=== PATIENT | female | born 1950 | race Caucasian/White ===

== ENCOUNTER 2016-09-15 06:52 | Emergency (ER) | payer BC ==
[2016-09-15] MEDS ORDERED: Phenylephrine 1% NASAL* 15 ML BOT LEFT NARE ONE (08:16)
[2016-09-15] MEDS ORDERED: Lidocaine 4% TOPICAL* 50 ML TOP.SOLN TOPICAL ONE ×2 (08:18→08:23)
[2016-09-15 09:28] VITALS: BP 149/70
--- NOTE | 2016-09-15 16:24 | ED ---
Chris Jorge Adam, scribed for Kanu Gallardo MD on 09/15/16 at 0821 . Throat Pain/Nasal Congestion - HPI Summary HPI Summary: 66 y/o female presents to ED with epistaxis beginning at 05:30 this morning which has not subsided since. Blood flowing from the left nostril was unable to be controlled running down the back of the throat waking up the pt. Pt notes that she hit her head yesterday but there was no impact to her nose or face area. [employer] pt took one baby aspirin. Currently, blood is no longer running down the back of the throat. Pt denies any blood thinner, previous uncontrollable epistaxis, rhinorrhea, URI, drug use, nasal sprays, tobacco use, EtOH use or known allergies. She describes her home has fairly hot and dry. - History of Current Complaint Chief Complaint: EDEpistaxis Time Seen by Provider: 09/15/16 07:54 Hx Obtained From: Patient Onset/Duration: Sudden Onset, Lasting Hours, Still Present Severity: Mild Associated Signs And Symptoms: Positive: Sinus Discomfort - Epistaxis - Allergies/Home Medications Allergies/Adverse Reactions: Allergies Allergy/AdvReac Type Severity Reaction Status Date / Time No Known Allergies Allergy Verified 04/18/16 09:33 PMH/Surg Hx/FS Hx/Imm Hx Endocrine/Hematology History: Denies: Hx Diabetes Cardiovascular History: Denies: Hx Hypertension, Hx Pacemaker/ICD History: Denies: Hx Renal Disease Sensory History: Denies: Hx Hearing Aid Psychiatric History: Denies: Hx Panic Disorder - Cancer History Cancer Type, Location and Year: BREAST 2008 Hx Chemotherapy: No Hx Radiation Therapy: Yes - BREAST - Surgical History Surgery Procedure, Year, and Place: LUMPECTOMY LEFT 2008, Infectious Disease History: No Infectious Disease History: Denies: Traveled Outside the [place] in Last 30 Days - Family History Known Family History: Positive: Other - Negative FMHx of breast CA - Social History Occupation: Employed Full-time Lives: Alone Alcohol Use: None Hx Substance Use: No Substance Use Type: Reports: None Hx Tobacco Use: No Smoking Status (MU): Never Smoked Tobacco Review of Systems Negative: Fever Positive: Epistaxis. Negative: Nasal Discharge All Other Systems Reviewed And Are Negative: Yes Physical Exam - Summary Physical Exam Summary: The patient is well-nourished in no acute distress and in no acute pain. The skin is warm and dry and skin color reflects adequate perfusion. HEENT: The head is normocephalic and atraumatic. The pupils are equal and reactive. The conjunctivae are clear and without drainage. Evidence of epistaxis. Mouth reveals dry mucous membranes. Neck is supple with full range of motion and non-tender. There are no carotid bruits. There is no neck vein distension. Respiratory: Chest is non-tender. Lungs are clear to auscultation and breath sounds are symmetrical and equal. Cardiovascular: Heart is regular rate and rhythm. There is no murmur or rub auscultated. There is no peripheral edema and pulses are symmetrical and equal. Abdomen: The abdomen is soft and non-tender. There are normal bowel sounds heard in all four quadrants and there is no organomegaly palpated. Musculoskeletal: There is no back pain noted. Extremities are non-tender with full range of motion. There is good capillary refill. There is no peripheral edema or calf tenderness elicited. Neurological: Patient is alert and oriented to person, place and time. The patient has symmetrical motor strength in all four extremities. Cranial nerves are grossly intact. Deep tendon reflexes are symmetrical and equal in all four extremities. Psychiatric: The patient has an appropriate affect and does not exhibit any anxiety or depression. Triage Information Reviewed: Yes Vital Signs On Initial Exam: Initial Vitals Temp Pulse Resp BP Pulse Ox 99.1 F 93 16 176/92 98 09/15/16 06:53 09/15/16 06:53 09/15/16 06:53 09/15/16 06:53 09/15/16 06:53 Vital Signs Reviewed: Yes Procedures - Procedure Summary Procedure Summary: 08:35 - Pledget, Jovany-Synephrine 1% and viscous lidocaine 4% was instilled in both nostrils. Diagnostics - Vital Signs Vital Signs Temp Pulse Resp BP Pulse Ox 09/15/16 06:53 99.1 F 93 16 176/92 98 - Laboratory Lab Statement: Any lab studies that have been ordered have been reviewed, and results considered in the medical decision making process. Re-Evaluation - Re-Evaluation First Eval Re-Evaluation Time: 09:15 - Took pledgets out of nose and there is no active bleeding. There is no blood visualized in the posterior pharynx. Change: Improved Second Eval Re-Evaluation Time: 09:32 - No active bleeding. Triple antibiotic ointment applied in nose. EENT Course/Dx - Differential Diagnoses Differential Diagnoses: Epistaxis - Diagnoses Provider Diagnoses: Epistaxis Discharge - Discharge Plan Condition: Stable Disposition: HOME Patient Education Materials: Nosebleed (ED) Referrals: Ariel Contreras MD [Primary Care Provider] - Additional Instructions: Follow up with Dr. Contreras. Avoid coughing, sneezing, and lifting. Get a petroleum-based jelly or antibiotic ointment to put in nose 1-2 times a day. Also, use saline drops. Humidify air in bedroom. The documentation as recorded by the Chris marsh Adam accurately reflects the service I personally performed and the decisions made by me, Kanu Gallardo MD.
== END 2016-09-15 10:20 | disposition home or self-care (01) ==
LOC: ED 06:52
DX: R04.0 Epistaxis (principal); Z85.3 Personal history of malignant neoplasm of breast
CPT/HCPCS: 30901; 99282; A9270-GY

== ENCOUNTER 2022-04-10 08:03 | Inpatient (IN) ==
[2022-04-10] MEDS ORDERED: Ondansetron ODT 4 mg TAB 4 MG TAB PO PRN (11:53)
[2022-04-10] MEDS ORDERED: Morphine 2 MG/ML SYRINGE IV PRN (11:53)
[2022-04-10] MEDS ORDERED: Magnesium Hydroxide LIQ 30 ML UDC PO PRN (11:53)
[2022-04-10] MEDS ORDERED: Lactulose 30 ml UDC PO PRN (11:53)
[2022-04-10] MEDS ORDERED: Ondansetron 4 mg VIAL 2 MG/ML 2 ml VIAL IV PRN (11:53)
[2022-04-10 15:50] LABS: ABS Lymphocytes 1.1 10^3/ul (1.0-4.8); ABS Monocytes 0.8 10^3/ul (0-0.8); ABS Neutrophils 5.7 10^3/ul (1.5-7.7); Eosinophil % 0.1 %; Hematocrit 39 % (35-47); Hemoglobin 13.7 g/dL (12.0-16.0); Lymphocyte % 14.6 %; Mean Corpuscular HGB Conc 35 g/dL (31-36); Mean Corpuscular Hemoglobin 35 pg (27-31); Mean Corpuscular Volume 99 fL (80-97); Mean Platelet Volume 8.7 fL (7.4-10.4); Platelet Count 182 10^3/uL (150-450); Red Blood Count 3.95 10^6 /uL (3.70-4.87); Red Cell Distribution Width 14 % (10-15); White Blood Count 7.7 10^3/uL (3.5-10.8)
[2022-04-10 16:01] LABS: INR 1.1 (0.89-1.11)
[2022-04-10] MEDS: Lactated Ringers 1000 ml BAG 1,000 ML IV SCH (17:43)
[2022-04-10 17:48] LABS: eGFR CKD-EPI 82.4 (>60)
[2022-04-10 18:43] LABS: Activated Partial Thrombo Time 30.6 seconds (26.0-38.0)
[2022-04-10 18:50] LABS: Calcium 9.5 mg/dL (8.6-10.3); Potassium 4.4 mmol/L (3.5-5.0)
[2022-04-10] MEDS: Magnesium Hydroxide LIQ 30 ML UDC PO SCH (19:46)
[2022-04-10] MEDS: Heparin 5000 UNITS/ML 1 mL VIAL SUBCUT SCH (19:53)
[2022-04-11] MEDS: Lactated Ringers 1000 ml BAG 1,000 ML IV SCH (05:34)
[2022-04-11] MEDS: Heparin 5000 UNITS/ML 1 mL VIAL SUBCUT SCH ×2 (09:26→21:50)
[2022-04-11] MEDS: Magnesium Hydroxide LIQ 30 ML UDC PO SCH ×2 (09:27→21:48)
[2022-04-11] MEDS: Vitamin THERAPEUTIC TAB PO SCH (09:28)
[2022-04-11 14:20] LABS: Vitamin D Total 25(OH) 68.2 ng/mL (20-50)
[2022-04-12] MEDS ORDERED: oxyCODONE/Acetamin 5/325 mg TAB PO PRN (09:35)
[2022-04-12] MEDS ORDERED: fentaNYL 100 mcg/2 ml 50 MCG/ML VIAL IV PRN (09:35)
[2022-04-12] MEDS ORDERED: Naloxone 0.4 mg VIAL 0.4 mg/ml 1 ml VIAL IV PRN (09:35)
[2022-04-12] MEDS ORDERED: Ondansetron 4 mg VIAL 2 MG/ML 2 ml VIAL IV PRN (09:35)
[2022-04-12] MEDS: Vitamin THERAPEUTIC TAB PO SCH (10:11)
[2022-04-12] MEDS: Heparin 5000 UNITS/ML 1 mL VIAL SUBCUT SCH ×2 (10:24→22:42)
[2022-04-12] MEDS: EXEMESTANE 25 MG PO SCH (11:49)
[2022-04-12] MEDS: Magnesium Hydroxide LIQ 30 ML UDC PO SCH ×2 (11:49→22:43)
[2022-04-13 05:21] LABS: ABS Eosinophils 0.2 10^3/ul (0-0.6); ABS Lymphocytes 1.5 10^3/ul (1.0-4.8); ABS Monocytes 0.6 10^3/ul (0-0.8); ABS Neutrophils 2.6 10^3/ul (1.5-7.7); Eosinophil % 3.5 %; Hematocrit 35 % (35-47); Hemoglobin 11.7 g/dL (12.0-16.0); Lymphocyte % 29.8 %; Mean Corpuscular HGB Conc 34 g/dL (31-36); Mean Corpuscular Hemoglobin 33 pg (27-31); Mean Corpuscular Volume 99 fL (80-97); Mean Platelet Volume 8.4 fL (7.4-10.4); Platelet Count 177 10^3/uL (150-450); Red Blood Count 3.51 10^6 /uL (3.70-4.87); Red Cell Distribution Width 13 % (10-15); White Blood Count 4.9 10^3/uL (3.5-10.8)
[2022-04-13] MEDS ORDERED: Lactated Ringers 1000 ml BAG 1,000 ML IV SCH (06:00)
[2022-04-13] MEDS ORDERED: Buffered Lidocaine 1% SYRIN 1 ml INTRADERM ONE (06:00)
[2022-04-13] MEDS: Vitamin THERAPEUTIC TAB PO SCH (07:23)
[2022-04-13] MEDS: Magnesium Hydroxide LIQ 30 ML UDC PO SCH ×2 (07:23→21:25)
[2022-04-13] MEDS: EXEMESTANE 25 MG PO SCH (07:23)
[2022-04-13] MEDS ORDERED: Dexmedetomidine 200 mcg/2 ml 2 ml VIAL (200 mcg) ONE (08:49)
[2022-04-13] MEDS ORDERED: fentaNYL 100 mcg/2 ml 50 MCG/ML VIAL ONE ×2 (08:49→11:04)
[2022-04-13] MEDS ORDERED: ROPIVACAINE 5 MG/ML 30 ML BTL (0.5%) ONE (08:49)
[2022-04-13] MEDS ORDERED: Midazolam 2 mg/2 ml VIAL 1 mg/ml 2 ml VIAL (2 mg) ONE (08:50)
[2022-04-13] MEDS ORDERED: ceFAZolin 2 GM in NS PREMIX 2 GM/100 ML BAG IVPB ONE (09:08)
[2022-04-13] MEDS ORDERED: Lidocaine 2% PF 5 ML VIAL ONE (11:03)
[2022-04-13] MEDS ORDERED: Ondansetron 4 mg VIAL 2 MG/ML 2 ml VIAL ONE (11:03)
[2022-04-13] MEDS ORDERED: Dexamethasone IV 4 MG/ML VIAL 1 ml VIAL ONE (11:03)
[2022-04-13] MEDS ORDERED: Propofol 10 MG/ML 20 ML BTL ONE ×2 (11:03→13:17)
[2022-04-13] MEDS ORDERED: Rocuronium 50 mg VIAL 10 mg/ml 5 ml VIAL (50 mg) ONE (11:04)
[2022-04-13] MEDS ORDERED: Phenylephrine IV 10 MG/ML 1 ml VIAL ONE ×2 (12:14→12:50)
[2022-04-13] MEDS ORDERED: Glycopyrrolate IV 0.2 MG/ML 1 ML VIAL ONE (12:14)
[2022-04-13] MEDS ORDERED: Acetaminophen IV 1 GM/100ML 1,000 MG/100 ML BAG IV ONE (12:16)
[2022-04-13] MEDS ORDERED: Bupivacaine 0.5% SDV PF 30ML VIAL ONE (12:35)
[2022-04-13] MEDS ORDERED: oxyCODONE/Acetamin 5/325 mg TAB ONE (14:53)
[2022-04-13] MEDS: Lactated Ringers 1000 ml BAG 1,000 ML IV SCH (17:47)
[2022-04-13] MEDS ORDERED: Lactated Ringers 1000 ml BAG 1,000 ML IV ONE (20:24)
[2022-04-14] MEDS: Enoxaparin 40 MG/0.4 ML SYR SUBCUT SCH (08:40)
[2022-04-14] MEDS: Vitamin THERAPEUTIC TAB PO SCH (08:41)
[2022-04-14] MEDS: EXEMESTANE 25 MG PO SCH (08:42)
[2022-04-14] MEDS: Magnesium Hydroxide LIQ 30 ML UDC PO SCH ×2 (08:44→23:00)
[2022-04-15 06:06] LABS: ABS Eosinophils 0.2 10^3/ul (0-0.6); ABS Lymphocytes 1.4 10^3/ul (1.0-4.8); ABS Monocytes 0.7 10^3/ul (0-0.8); ABS Neutrophils 3.8 10^3/ul (1.5-7.7); Eosinophil % 3.2 %; Hematocrit 33 % (35-47); Hemoglobin 10.9 g/dL (12.0-16.0); Lymphocyte % 22.8 %; Mean Corpuscular HGB Conc 34 g/dL (31-36); Mean Corpuscular Hemoglobin 33 pg (27-31); Mean Corpuscular Volume 98 fL (80-97); Mean Platelet Volume 8.3 fL (7.4-10.4); Platelet Count 207 10^3/uL (150-450); Red Blood Count 3.32 10^6 /uL (3.70-4.87); Red Cell Distribution Width 14 % (10-15); White Blood Count 6.1 10^3/uL (3.5-10.8)
[2022-04-15 07:01] LABS: Calcium 8.6 mg/dL (8.6-10.3); Potassium 4.5 mmol/L (3.5-5.0); eGFR CKD-EPI 93.4 (>60)
[2022-04-15] MEDS: Enoxaparin 40 MG/0.4 ML SYR SUBCUT SCH (09:32)
[2022-04-15] MEDS: Vitamin THERAPEUTIC TAB PO SCH (09:32)
[2022-04-15] MEDS: EXEMESTANE 25 MG PO SCH (09:33)
[2022-04-15] MEDS: Magnesium Hydroxide LIQ 30 ML UDC PO SCH ×2 (09:37→20:58)
[2022-04-16] MEDS: EXEMESTANE 25 MG PO SCH (11:14)
[2022-04-16] MEDS: Vitamin THERAPEUTIC TAB PO SCH (11:15)
[2022-04-16] MEDS: Magnesium Hydroxide LIQ 30 ML UDC PO SCH (11:15)
[2022-04-16 14:21] LABS: ABS Basophils 0.1 10^3/ul (0-0.2); ABS Eosinophils 0.1 10^3/ul (0-0.6); ABS Lymphocytes 1.2 10^3/ul (1.0-4.8); ABS Monocytes 0.7 10^3/ul (0-0.8); ABS Neutrophils 4.6 10^3/ul (1.5-7.7); Eosinophil % 1.8 %; Hematocrit 36 % (35-47); Hemoglobin 12.2 g/dL (12.0-16.0); Lymphocyte % 18.1 %; Mean Corpuscular HGB Conc 33 g/dL (31-36); Mean Corpuscular Hemoglobin 33 pg (27-31); Mean Corpuscular Volume 99 fL (80-97); Mean Platelet Volume 8.1 fL (7.4-10.4); Platelet Count 256 10^3/uL (150-450); Red Cell Distribution Width 14 % (10-15); White Blood Count 6.6 10^3/uL (3.5-10.8)
[2022-04-17] MEDS: Enoxaparin 40 MG/0.4 ML SYR SUBCUT SCH (07:34)
[2022-04-17] MEDS: Vitamin THERAPEUTIC TAB PO SCH (08:37)
[2022-04-17] MEDS: EXEMESTANE 25 MG PO SCH (08:37)
[2022-04-17] MEDS: Cholecalciferol (VIT D3) 1,000 unit TAB PO SCH (17:52)
[2022-04-18] MEDS: Cholecalciferol (VIT D3) 1,000 unit TAB PO SCH (09:25)
[2022-04-18] MEDS: Vitamin THERAPEUTIC TAB PO SCH (09:26)
[2022-04-18] MEDS: EXEMESTANE 25 MG PO SCH (09:26)
[2022-04-19] MEDS: Cholecalciferol (VIT D3) 1,000 unit TAB PO SCH (08:28)
[2022-04-19] MEDS: EXEMESTANE 25 MG PO SCH (08:28)
[2022-04-19] MEDS: Vitamin THERAPEUTIC TAB PO SCH (08:28)
[2022-04-19 08:39] VITALS: BP 115/68
== END 2022-04-19 08:55 | DRG 313 ==
LOC: ED 08:03 → SUATTDRO 11:53 → EDHOLD 11:53 → SSU 17:20
PROVIDERS: ADMIT Orthopaedic Surgery Hand Surgery; ATTEND Internal Medicine

== ENCOUNTER 2022-04-19 07:41 | Inpatient (IN) ==
[2022-04-19] MEDS ORDERED: Senna TAB 8.6 mg TAB PO PRN (12:31)
[2022-04-19] MEDS ORDERED: Magnesium Hydroxide LIQ 30 ML UDC PO PRN (12:31)
[2022-04-20] MEDS: Cholecalciferol (VIT D3) 1,000 unit TAB PO SCH (09:39)
[2022-04-20] MEDS: EXEMESTANE 25 MG PO SCH (09:41)
[2022-04-21 06:07] LABS: ABS Basophils 0.1 10^3/ul (0-0.2); ABS Eosinophils 0.2 10^3/ul (0-0.6); ABS Lymphocytes 1.1 10^3/ul (1.0-4.8); ABS Monocytes 0.7 10^3/ul (0-0.8); ABS Neutrophils 3.8 10^3/ul (1.5-7.7); Eosinophil % 3.7 %; Hematocrit 36 % (35-47); Hemoglobin 11.9 g/dL (12.0-16.0); Mean Corpuscular HGB Conc 33 g/dL (31-36); Mean Corpuscular Hemoglobin 32 pg (27-31); Mean Corpuscular Volume 97 fL (80-97); Platelet Count 340 10^3/uL (150-450); Red Blood Count 3.67 10^6 /uL (3.70-4.87); Red Cell Distribution Width 13 % (10-15); White Blood Count 5.8 10^3/uL (3.5-10.8)
[2022-04-21 06:24] LABS: Albumin 3.7 g/dL (3.2-5.2); Albumin/Globulin Ratio 1.5 (1-3); Calcium 9.2 mg/dL (8.6-10.3); Globulin 2.4 g/dL (2-4); Potassium 4.4 mmol/L (3.5-5.0); Total Bilirubin 0.7 mg/dL (0.2-1.0); Total Protein 6.1 g/dL (6.4-8.9); eGFR CKD-EPI 94.1 (>60)
[2022-04-21] MEDS: Cholecalciferol (VIT D3) 1,000 unit TAB PO SCH (08:43)
[2022-04-21] MEDS: EXEMESTANE 25 MG PO SCH ×2 (10:41→18:13)
[2022-04-22] MEDS: EXEMESTANE 25 MG PO SCH (07:59)
[2022-04-22] MEDS: Cholecalciferol (VIT D3) 1,000 unit TAB PO SCH (08:00)
[2022-04-23] MEDS: EXEMESTANE 25 MG PO SCH (10:14)
[2022-04-23] MEDS: Cholecalciferol (VIT D3) 1,000 unit TAB PO SCH (10:14)
[2022-04-24] MEDS: Cholecalciferol (VIT D3) 1,000 unit TAB PO SCH (07:38)
[2022-04-24] MEDS: EXEMESTANE 25 MG PO SCH (07:41)
[2022-04-25 06:10] VITALS: BP 115/75
[2022-04-25] MEDS: Cholecalciferol (VIT D3) 1,000 unit TAB PO SCH (08:06)
[2022-04-25] MEDS: EXEMESTANE 25 MG PO SCH (08:06)
== END 2022-04-25 12:15 | disposition home health service (06) | DRG 860 ==
LOC: PMRU 10:32
PROVIDERS: ADMIT Physical Medicine & Rehabilitation; ATTEND Physical Medicine & Rehabilitation